=== PATIENT | female | born 1975 | race American Indian/Alaskan Native ===

== ENCOUNTER 2024-02-22 13:50 | Outpatient (RCR) | payer BC, SELFPAY ==
[2024-02-08 13:16] VITALS: BP 112/71
[2024-02-08] MEDS: VENOFER 110 MG IV (13:27)
[2024-02-08 14:40] VITALS: BP 111/75
[2024-02-15] MEDS: VENOFER 110 MG IV (14:07)
[2024-02-15 14:11] VITALS: BP 142/83
[2024-02-15 15:00] VITALS: BP 110/73
[2024-02-22 14:00] VITALS: BP 105/60
[2024-02-22] MEDS: VENOFER 110 MG IV (14:09)
[2024-02-22 15:45] VITALS: BP 115/61
== END 2024-02-22 23:59 | disposition home or self-care (01) ==
LOC: OID 13:50
PROVIDERS: ATTENDING PHYSICIAN Student in an Organized Health Care Education/Training Program
DX: D50.0 Iron deficiency anemia secondary to blood loss (chronic) (principal); N92.0 Excessive and frequent menstruation with regular cycle
CPT/HCPCS: 96365; J1756

== ENCOUNTER 2024-03-21 13:02 | Outpatient (RCR) | payer BC, SELFPAY ==
[2024-03-14 13:53] VITALS: BP 134/74
[2024-03-14] MEDS: VENOFER 110 MG IV (14:13)
[2024-03-14 15:23] VITALS: BP 134/78
[2024-03-21 13:21] VITALS: BP 97/63
[2024-03-21] MEDS: VENOFER 110 MG IV (13:44)
[2024-03-21 14:56] VITALS: BP 113/74
== END 2024-03-22 09:51 | disposition home or self-care (01) ==
LOC: OID 13:02
PROVIDERS: ATTENDING PHYSICIAN Student in an Organized Health Care Education/Training Program
DX: D50.0 Iron deficiency anemia secondary to blood loss (chronic) (principal); N92.0 Excessive and frequent menstruation with regular cycle
CPT/HCPCS: 96365; J1756